=== PATIENT | female | born 1945 | race African-American/Black ===

== ENCOUNTER 2017-01-27 20:07 | Emergency (ER) | payer MEDICARE, MEDICAID ==
[~2017-01-27] VITALS: Ht 170.2 cm; Wt 75.0 kg
[~2017-01-27 20:07] MED LIST: ALBU2SYR PO; ALPR0.5T PO; AMLO1CAP PO; DICL50TA9 PO; HYDR-519 PO
[2017-01-27 20:55] LABS: CLARITY URINE TURBID (CLEAR); COLOR URINE ORANGE (YELLOW); GLUCOSE URINE NEGATIVE (NEGATIVE); KETONES URINE NEGATIVE (NEGATIVE); LEUKOCYTE ESTERASE URINE 1+ (NEGATIVE); NITRITE URINE POSITIVE (NEGATIVE); OCCULT BLOOD URINE 2+ (NEGATIVE); PROTEIN URINE 2+ (NEGATIVE); SPECIFIC GRAVITY URINE 1.037 (1.005-1.030); UROBILINOGEN URINE 0.2 E.U./dL (0.2-1.0)
[2017-01-28 01:19] LABS: BASOPHILS % 1.3 % (0.0-2.0); EOSINOPHILS % 2.1 % (0.0-5.0); HEMATOCRIT. 43.7 % (36.0-48.0); HEMOGLOBIN. 14.5 g/dL (12.0-16.0); LYMPHOCYTES % 51.2 % (20.0-50.0); MEAN CORPUSCULAR HEMOGLOBIN 30.3 pg (28.0-32.0); MEAN CORPUSCULAR VOLUME 91.2 fL (81.0-99.0); MEAN PLATELET VOLUME 9.8 fl (7.4-10.4); MONOCYTES % 3.9 % (2.0-8.0); NEUTROPHILS % 41.5 % (40.0-76.0); PLATELET 251 x1000/uL (130-400); RED BLOOD CELL COUNT 4.79 mill/uL (4.2-5.4)
[2017-01-28] MEDS ORDERED: IPRATROPIUM BROMIDE (0.02%) 0.5MG/2.5ML NEB HHN STA (01:28)
[2017-01-28] MEDS ORDERED: ALBUTEROL (0.083%) 2.5MG/3ML NEB HHN STA (01:28)
[2017-01-28] MEDS ORDERED: METHYLPREDNISOLONE SOD SUCC 125 MG/2 ML VIAL IV STA (01:28)
[2017-01-28] MEDS ORDERED: MAGNESIUM 2 G PREMIX 50 ML IV ONE (01:30)
[2017-01-28] MEDS ORDERED: MAGNESIUM/ALUMINUM HYDROXIDE/SIMETHICONE 30ML UDC PO ONE (01:30)
[2017-01-28] MEDS ORDERED: LABETALOL HCL 20MG/4ML CARPUJECT IV ONE (01:45)
[2017-01-28] MEDS ORDERED: LABETALOL 5MG/ML SYR 20 MG/4 ML SYRINGE IV NR (02:00)
[2017-01-28 02:14] LABS: D-DIMER 1.6 mg/L FEU (<0.50); INR 1.1; PROTHROMBIN TIME 11.4 sec (9.4-11.6)
[2017-01-28 02:19] LABS: CARBON DIOXIDE 24 mEq/L (21-32); CHLORIDE 110 mEq/L (98-107)
[2017-01-28 02:22] LABS: ETHANOL BLOOD < 10 mg/dL; TROPONIN I 0.03 ng/mL (0.00-0.04)
[2017-01-28] MEDS ORDERED: SODIUM CHLORIDE 0.9% 1,000 ML IV NR (04:09)
[2017-01-28] MEDS ORDERED: HYDRALAZINE 20MG/ML VIAL IV ONE (04:15)
[2017-01-28 04:56] VITALS: BP 145/45
== END 2017-01-28 04:57 | disposition home or self-care (01) ==
LOC: ER 22:28
DX: I16.0 Hypertensive urgency (principal); I10 Essential (primary) hypertension; R31.9 Hematuria, unspecified; M19.90 Unspecified osteoarthritis, unspecified site; F17.200 Nicotine dependence, unspecified, uncomplicated; Z88.0 Allergy status to penicillin
CPT/HCPCS: 36415; 71010; 76856; 80053; 81001; 83880; 84484; 85025; 85379; 85610; 86850; 86900; 86901; 93005; 94640; 96365; 96375; 99291; G0482; J0360; J2930; J3475; J3490; J7611

== ENCOUNTER 2020-10-09 14:35 | Emergency (ER) | payer MEDICARE, MEDICAID ==
[~2020-10-09] VITALS: Ht 167.6 cm; Wt 77.0 kg
[~2020-10-09 14:35] MED LIST changes: -ALBU2SYR PO; +ALBU2SYR3 PO
[2020-10-09 14:38] VITALS: BP 110/70
[2020-10-09] MEDS ORDERED: IBUPROFEN 600MG TABLET PO ONE (17:15)
== END 2020-10-09 18:49 | disposition left against medical advice (07) ==
LOC: ER 14:35
DX: G89.29 Other chronic pain (principal); M25.551 Pain in right hip; I10 Essential (primary) hypertension; Z88.0 Allergy status to penicillin; Z98.890 Other specified postprocedural states; Z79.899 Other long term (current) drug therapy
CPT/HCPCS: 73502; 99283